=== PATIENT | male | born 1980 | race Caucasian/White ===

== ENCOUNTER 2017-03-27 17:26 | Emergency (ER) | payer MEDICAID ==
[2017-03-27 17:26] VITALS: BMI 33.4
[2017-03-27 17:52] VITALS: BP 128/79; PULSE 96; RESP 18; TEMP 98.4; O2SAT 99
[2017-03-27] MEDS ORDERED: Naproxen 500 MG TAB PO ONE (18:25)
--- NOTE | 2017-03-27 18:54 | ED PDOC ---
Lower Extremity Pain/Injury Time Seen by Provider: 03/27/17 18:02 Chief Complaint (Nursing): Lower Extremity Problem/Injury Chief Complaint (Provider): Right foot injury History Per: Patient History/Exam Limitations: no limitations Onset/Duration Of Symptoms: Hrs (x 3) Current Symptoms Are (Timing): Still Present Additional Complaint(s): Delonte Dobbins is a 36 y/o male who presents to the ED for evaluation of a right foot injury. States that earlier today he was getting on escalator when his right foot slipped and hyper-dorsiflexed, and now hes had pain to the ankle ever since. Denies calf pain, numbness, and tingling. PMD: Non [facility] Provider Past Medical History Reviewed: Historical Data, Nursing Documentation, Vital Signs Vital Signs: Last Vital Signs Temp 98.4 F 03/27/17 17:49 Pulse 96 H 03/27/17 17:49 Resp 18 03/27/17 17:49 BP 128/79 03/27/17 17:49 Pulse Ox 99 03/27/17 17:49 - Medical History PMH: Diabetes, HTN, Hypercholesterolemia Denies: Depression - Family History Family History: States: Unknown Family Hx - Immunization History Hx Tetanus Toxoid Vaccination: No Hx Influenza Vaccination: No Hx Pneumococcal Vaccination: No - Home Medications Home Medications: Ambulatory Orders Medication Instructions Recorded Ibuprofen [Motrin] 600 mg PO TID PRN #12 tab 11/21/14 Insulin Aspar/Insulin N 70/30 33 units SC BID 11/21/14 MetFORMIN [glucoPHAGE] 1 tab PO BID 11/21/14 Simvastatin 1 tab PO HS 11/21/14 diaZEpam [Valium] 5 mg PO TID #10 tab 11/21/14 Naproxen [Naprosyn] 500 mg PO BID PRN #30 tab 03/27/17 - Allergies Allergies/Adverse Reactions: Allergies Allergy/AdvReac Type Severity Reaction Status Date / Time No Known Allergies Allergy Verified 11/21/14 11:27 Review of Systems ROS Statement: Except As Marked, All Systems Reviewed And Found Negative Musculoskeletal: Positive for: Foot Pain (right). Negative for: Other (calf pain) Neurological: Negative for: Weakness, Numbness (and tingling) Physical Exam - Reviewed Nursing Documentation Reviewed: Yes Vital Signs Reviewed: Yes - Physical Exam Appears: Positive for: Well, Non-toxic, No Acute Distress Head Exam: Positive for: ATRAUMATIC, NORMAL INSPECTION, NORMOCEPHALIC Skin: Positive for: Normal Color, Warm, DRY Respiratory: Negative for: Respiratory Distress Pulses-Dorsalis Pedis (L): 2+ Pulses-Dorsalis Pedis (R): 2+ Extremity: Positive for: Tenderness (Mild tenderness and swelling to the malleolus of right ankle), Capillary Refill (< 2 sec). Negative for: Other ( foot or leg tenderness) Neurologic/Psych: Positive for: Alert, Oriented - ECG O2 Sat by Pulse Oximetry: 99 (RA) Pulse Ox Interpretation: Normal - Radiology X-Ray: Interpreted by Me (R ankle x-ray) X-Ray Interpretation: No Acute Disease - Progress ED Course And Treament: Ankle immobilized in aircast splint by RN. Crutches provided. Medical Decision Making Medical Decision Making: Time: 18:25 Initial Plan: --Given Naproxen PO --Pending X-Ray Right Ankle Scribe Attestation: Documented by Halley Ornelas, acting as a scribe for Jose Mercado PA-C Provider Scribe Attestation: All medical record entries made by the Scribe were at my direction and personally dictated by me. I have reviewed the chart and agree that the record accurately reflects my personal performance of the history, physical exam, medical decision making, and the department course for this patient. I have also personally directed, reviewed, and agree with the discharge instructions and disposition. Disposition - Clinical Impression Clinical Impression: Ankle sprain - Patient ED Disposition Is Patient to be Admitted: No - Disposition Referrals: Podiatry Clinic [Outside] Disposition: Routine/Home Disposition Time: 19:20 Condition: STABLE Prescriptions: Naproxen [Naprosyn] 500 mg PO BID PRN #30 tab PRN Reason: Pain Instructions: Ankle Sprain (ED), Crutch Instructions (ED), Ankle Stirrup Splint (ED) Forms: [facility] (Telugu) Print Language: CITIZ[place]
--- NOTE | 2017-03-28 14:16 | RAD ---
PROCEDURE: Right Ankle Radiographs. HISTORY: trauma COMPARISON: None FINDINGS: BONES: No evidence of acute displaced fracture nor dislocation. Talar dome intact. Tiny posterior calcaneal enthesophyte JOINTS: Tiny osteophyte seen arising from inferior tip of the lateral malleolus. Ankle mortise maintained. SOFT TISSUES: No significant soft tissue swelling OTHER FINDINGS: None. IMPRESSION: No evidence of acute displaced fracture nor dislocation. If symptoms persist or occult fracture suspected clinically recommend repeat radiographs in 5-10 days as most fractures should become radiographically evident in this timeframe.
== END 2017-03-27 20:12 | disposition home or self-care (01) ==
LOC: H.ER 17:26
DX: S93.401A Sprain of unspecified ligament of right ankle, initial encounter (principal); X50.9XXA Other and unspecified overexertion or strenuous movements or postures, initial encounter; Y92.89 Other specified places as the place of occurrence of the external cause